=== PATIENT | female | born 2000 | race Caucasian/White ===

== ENCOUNTER 2024-02-11 17:31 | Emergency (ER) | payer OTHER ==
--- NOTE | 2024-02-11 18:22 | ERPHSYRPT ---
- History of Present Illness Time Seen by Provider: 02/11/24 18:22 Source: patient Exam Limitations: no limitations Physician History: This is a 23-year-old white female patient who is 6 weeks and presents with 10-day history of intermittent vomiting and diarrhea. In the last 2 days it has gotten to the point where she cannot hold liquids down. Over the weekend she had improved but then worsened on Saturday. She has no abdominal pain. She has no chest pain. She has no shortness of breath. She has had no vaginal bleeding or pelvic cramping. Timing/Duration: day(s) (10 days), worse Activites at Onset: none Onset Location: other (No pain) Pain Radiation: none Severity of Pain-Max: none Severity of Pain-Current: none Sexual intercourse history: non-contributory Modifying Factors: Improves With: vomiting, other (Diarrhea) Associated Symptoms: nausea, vomiting, other (Diarrhea), No abdominal pain, No fever, No vaginal discharge Allergies/Adverse Reactions: amoxicillin Allergy (Verified 02/11/24 18:20) doxycycline Allergy (Verified 02/11/24 18:20) Penicillins Allergy (Verified 02/11/24 18:20) ibuprofen Adverse Reaction (Verified 02/11/24 18:20) states makes her "sick" Travel Risk - International Travel Have you traveled outside of the country in past 3 weeks: No - Emerging Infectious Disease Are you exhibiting symptoms associated with any current EIDs: No - Review of Systems Constitutional: No Symptoms Eyes: No Symptoms Ears, Nose, & Throat: No Symptoms Respiratory: No Symptoms Cardiac: No Symptoms Abdominal/Gastrointestinal: Nausea, Vomiting, Diarrhea, Appetite Changes Genitourinary Symptoms: No Symptoms Musculoskeletal: No Symptoms Skin: No Symptoms Neurological: No Symptoms Psychological: No Symptoms Endocrine: No Symptoms Hematologic/Lymphatic: No Symptoms Immunological/Allergic: No Symptoms All Other Systems: Reviewed and Negative - Past Medical History Pertinent Past Medical History: No - Nursing Vital Signs Nursing Vital Signs: Initial Vital Signs Temperature 96.6 F 02/11/24 18:25 Pulse Rate 78 02/11/24 18:25 Respiratory Rate 18 02/11/24 18:25 Blood Pressure 153/71 02/11/24 18:25 O2 Sat by Pulse Oximetry 100 02/11/24 18:25 Pain Scale Pain Intensity 0 - Physical Exam General Appearance: no apparent distress, alert, anxiety Eye Exam: PERRL/EOMI, eyes nml inspection Ears, Nose, Throat Exam: normal ENT inspection, moist mucous membranes Neck Exam: normal inspection, non-tender, supple, full range of motion Respiratory Exam: normal breath sounds, lungs clear, airway intact, No chest tenderness, No respiratory distress Cardiovascular Exam: regular rate/rhythm, normal heart sounds, normal peripheral pulses Gastrointestinal/Abdomen Exam: soft, normal bowel sounds, No tenderness Pelvic Exam: not done Rectal Exam: not done Back Exam: normal inspection, normal range of motion, No CVA tenderness, No vertebral tenderness Extremity Exam: normal inspection, normal range of motion, pelvis stable Neurologic Exam: alert, oriented x 3, cooperative, research associate quality control qc II-XII nml as tested, normal mood/affect Skin Exam: normal color, warm, dry Lymphatic Exam: No adenopathy SpO2 Interpretation: normal O2 Delivery: Room Air - Course Nursing assessment & vital signs reviewed: Yes Ordered Tests: Active Orders 24 hr Category Date Time Status IV Insertion STAT Care 02/11/24 19:24 Active AMYLASE Stat Lab 02/11/24 20:10 Completed CBC W DIFF Stat Lab 02/11/24 20:10 Completed CMP Stat Lab 02/11/24 20:10 Completed CULTURE,URINE Stat Lab 02/11/24 20:00 Received LIPASE Stat Lab 02/11/24 20:10 Completed UA W/RFX UR CULTURE Stat Lab 02/11/24 20:00 Completed Medication Summary Generic Name Dose Route Start Last Admin Trade Name Freq PRN Reason Stop Dose Admin Ceftriaxone Sodium 1 gm in 100 mls @ 200 mls/hr 02/11/24 20:36 Rocephin 1 Gm / 100 Ml Nacl IV 02/11/24 21:05 STAT ONE Sodium Chloride 500 mls @ 500 mls/hr 02/11/24 20:43 Sodium Chloride 0.9% 500 Ml IV 02/11/24 21:42 .Q1H ONE Discontinued Medications Generic Name Dose Route Start Last Admin Trade Name Freq PRN Reason Stop Dose Admin Sodium Chloride 1,000 mls @ 999 mls/hr 02/11/24 19:22 02/11/24 20:26 Sodium Chloride 0.9% 1000 Ml IV 02/11/24 20:22 Infused .Q1H1M STA Infusion Sodium Chloride Confirm 02/11/24 19:22 Sodium Chloride 0.9% 1000 Ml Administered 02/11/24 19:23 Dose 1,000 mls @ ud .ROUTE .STK-MED ONE Ceftriaxone Sodium Confirm 02/11/24 20:40 Rocephin 1 Gm / 100 Ml Nacl Administered 02/11/24 20:41 Dose 1 gm in 100 mls @ ud IV .STK-MED ONE Ondansetron HCl 4 mg 02/11/24 19:22 02/11/24 19:25 Ondansetron Hcl 4 Mg/2 Ml Vial IV 02/11/24 19:23 4 mg STAT ONE Administration Ondansetron HCl Confirm 02/11/24 19:22 Ondansetron Hcl 4 Mg/2 Ml Vial Administered 02/11/24 19:23 Dose 4 mg .ROUTE .STK-MED ONE Lab/Rad Data: Laboratory Result Diagrams 02/11/24 20:10 02/11/24 20:10 Laboratory Results 02/11/24 02/11/24 02/11/24 Range/Units 20:10 20:10 20:00 WBC 9.1 (3.98-10.04) x10^3/uL RBC 4.64 (3.93-5.22) x10^6/uL Hgb 11.9 (11.2-15.7) g/dL Hct 37.6 (34.1-44.9) % MCV 81.0 (79.4-94.8) fL MCH 25.6 (25.6-32.2) pg MCHC 31.6 L (32.2-35.5) g/dL RDW 18.9 H (11.7-14.4) % Plt Count 242 (182-369) x10^3/uL MPV 10.2 (9.4-12.3) fL Gran % 79.2 H (34.0-71.1) % Immature Gran % (Auto) 0.3 (0.001-0.429) % Nucleat RBC Rel Count 0.0 (0.00-0.2) % Eos # (Auto) 0.03 L (0.04-0.36) x10^3/uL Immature Gran # (Auto) 0.03 (0.001-0.031) x10^3u/L Absolute Lymphs (auto) 1.22 (1.18-3.74) x10^3/uL Absolute Monos (auto) 0.60 (0.24-0.86) x10^3/uL Absolute Nucleated RBC 0.00 (0.00-0.012) x10^3u/L Lymphocytes % 13.4 L (19.3-51.7) % Monocytes % 6.6 (4.7-12.5) % Eosinophils % 0.3 L (0.7-5.8) % Basophils % 0.2 (0.1-1.2) % Absolute Granulocytes 7.18 H (1.56-6.13) x10^3/uL Basophils # 0.02 (0.01-0.08) x10^3/uL Sodium 138 (135-145) mmol/L Potassium 3.9 (3.5-5.1) mmol/L Chloride 103 (98-107) mmol/L Carbon Dioxide 22 (22-30) mmol/L Anion Gap 16.6 H (5-15) MEQ/L BUN 9 (7-17) mg/dL Creatinine 0.63 (0.52-1.04) mg/dL Estimated GFR 128.6 ML/MIN Glucose 93 (74-106) mg/dL Calcium 9.5 (8.4-10.2) mg/dL Total Bilirubin 0.30 (0.2-1.3) mg/dL AST 27 (14-36) U/L ALT 23 (0-35) U/L Alkaline Phosphatase 81 (38-126) U/L Serum Total Protein 8.0 (6.3-8.2) g/dL Albumin 4.4 (3.5-5.0) g/dL Amylase 50 (30-110) U/L Lipase 22 L (23-300) U/L Urine Color Dark Yellow A (Yellow) Urine Appearance Turbid A (Clear) Urine pH 6.0 (4.6-8.0) Ur Specific [place] >=1.030 A (1.005-1.030) Urine Protein 30 (Negative) Urine Glucose (UA) Negative (Negative) mg/dL Urine Ketones >=160 A (Negative) Urine Blood Negative (Negative) Urine Nitrite Negative (Negative) Urine Bilirubin Negative (Negative) Urine Urobilinogen 1.0 A (0.2) mg/dL Ur Leukocyte Esterase Small A (Negative) U Hyaline Cast (Auto) 6-10 A (0-2) /LPF Urine Microscopic RBC 11-20 A (0-5) /HPF Urine Microscopic WBC 21-50 A (0-5) /HPF Ur Epithelial Cells Moderate A (None Seen) /HPF Urine Bacteria Many A (None Seen) /HPF Urine Culture Reflexed YES (NO) - Progress Progress: improved, re-examined Air Movement: good Progress Note: 02/11/24 20:46 My medical decision making and the assignment of moderate complexity to this patient's medical issue today is based on review of the patient's past medical history, review the patient's medication list, reviewed patient drug allergy list, history present illness and physical findings on examination. The workup in this patient includes placement of intravenous line, infusion of crystalloid solution, CBC, CMP, amylase, lipase, urinalysis. We also provide the patient with Zofran intravenously. Differential diagnosis includes but is not limited to urinary tract infection, dehydration, electrolyte abnormalities, vomiting of 02/11/24 20:48 Blood Culture(s) Obtained: No Antibiotics given: Yes Counseled pt/family regarding: lab results, diagnosis, need for follow-up Medical Desision Making - Independent Historian Additional History obtained from: Spouse - Diagnostic Testing Diagnostic test were ordered, analyzed, and reviewed by me: Yes - Risk of complications The pt has a mod risk of morbidity or mortality based on: Need for prescription drug management - Departure Departure Disposition: Home Clinical Impression: Dehydration, UTI in Condition: Stable Critical Care Time: No Referrals: MATA ROCHA [Primary Care Provider] - Follow up/PCP as directed Additional Instructions: Drink plenty of clear liquids before advancing your diet. Avoid fatty greasy spicy foods. Take your antibiotics and use your Zofran as prescribed. Call your polls or surveys interviewer and primary care provider tomorrow, 02/12/2024 to make arranges for follow-up appointment for further evaluation and management. Prescriptions: Ondansetron ODT 4 MG [Zofran Odt 4 mg] 4 mg PO Q6H PRN PRN #10 tablet PRN Reason: Vomiting Cephalexin Mh 500 mg [Keflex 500 mg] 500 mg PO TID #21 cap
[2024-02-11 18:35] VITALS: TEMP 96.6
[2024-02-11] MEDS ORDERED: Sodium Chloride 0.9% 1000 ML 1,000 ML ONE (19:22)
[2024-02-11] MEDS ORDERED: Zofran 4 MG/2 ML VIAL ONE (19:22)
[2024-02-11] MEDS: Sodium Chloride 0.9% 1000 ML 1,000 ML IV STA (19:25)
[2024-02-11] MEDS: Zofran 4 MG/2 ML VIAL IV ONE (19:25)
[2024-02-11 20:12] VITALS: PULSE 65
[2024-02-11 20:16] LABS: Absolute Neutrophil Ct (ANC) 7.18 x10^3/uL (1.56-6.13); BASOPHIL % 0.2 % (0.1-1.2); Basophil (Absolute #) 0.02 x10^3/uL (0.01-0.08); Eosinophil % 0.3 % (0.7-5.8); Eosinophil (Absolute #) 0.03 x10^3/uL (0.04-0.36); Hematocrit 37.6 % (34.1-44.9); Hemoglobin 11.9 g/dL (11.2-15.7); IMMATURE GRAN # 0.03 x10^3u/L (0.001-0.031); IMMATURE GRAN % 0.3 % (0.001-0.429); Lymphocyte (Absolute #) 1.22 x10^3/uL (1.18-3.74); Lymphocytes % 13.4 % (19.3-51.7); Mean Corpuscular Hemoglobin 25.6 pg (25.6-32.2); Mean Corpuscular Hgb Concent. 31.6 g/dL (32.2-35.5); Mean Platelet Volume 10.2 fL (9.4-12.3); Monocytes % 6.6 % (4.7-12.5); Neutrophil % 79.2 % (34.0-71.1); Platelet Count 242 x10^3/uL (182-369); Red Blood Count 4.64 x10^6/uL (3.93-5.22); Red Cell Distribution Width 18.9 % (11.7-14.4); White Blood Count 9.1 x10^3/uL (3.98-10.04)
[2024-02-11 20:22] LABS: ALBUMIN 4.4 g/dL (3.5-5.0); ANION GAP 16.6 MEQ/L (5-15); BILIRUBIN,TOTAL 0.3 mg/dL (0.2-1.3); Calcium 9.5 mg/dL (8.4-10.2); Creatinine 1 0.63 mg/dL (0.52-1.04); EST GLOMERULAR FILTRATION RATE 128.6 ML/MIN; Potassium 3.9 mmol/L (3.5-5.1)
[2024-02-11 20:28] LABS: Appearance Turbid (Clear); Bacteria Many /HPF (None Seen); Bilirubin Negative (Negative); Blood Negative (Negative); Epithelial Cells Moderate /HPF (None Seen); Glucose, Urine Negative (Negative); Ketones >=160 (Negative); Leukocyte Esterase Small (Negative); Nitrite Negative (Negative); Protein,Urine Dip 30 (Negative); Specific Gravity >=1.030 (1.005-1.030); WBC 21-50 /HPF (0-5)
[2024-02-11] MEDS ORDERED: ROCEPHIN 1 GM / 100 ML NaCl 1 GM/100 ML IVPB IV ONE (20:40)
[2024-02-11] MEDS: ROCEPHIN 1 GM / 100 ML NaCl 1 GM/100 ML IVPB IV ONE (20:43)
[2024-02-11] MEDS ORDERED: Sodium Chloride 0.9% 500 ML 500 ML IV ONE (20:47)
[2024-02-11] MEDS: Sodium Chloride 0.9% 500 ML 500 ML IV ONE (20:48)
[2024-02-11 21:03] VITALS: BP 108/79; RESP 18; O2SAT 90
[2024-02-11] MEDS ORDERED: ZOFRAN ODT 4 MG ONE (21:16)
[2024-02-11] MEDS: ZOFRAN ODT 4 MG PO ONE (21:19)
== END 2024-02-11 21:24 | disposition home or self-care (01) ==
LOC: ED 17:31
DX: O23.41 Unspecified infection of urinary tract in pregnancy, first trimester (principal); N39.0 Urinary tract infection, site not specified; Z3A.01 Less than 8 weeks gestation of pregnancy; E86.0 Dehydration; O21.9 Vomiting of pregnancy, unspecified; R19.7 Diarrhea, unspecified; Z79.899 Other long term (current) drug therapy
CPT/HCPCS: 36000; 36415; 80053; 81001; 82150; 83690; 85025; 87086; 96360; 96361; 96365; 96374; 99284; J0696; J2405; Q0162